=== PATIENT | male | born 1995 | race Hispanic/Latino ===

== ENCOUNTER 2020-05-17 16:49 | Emergency (ER) | payer OTHER ==
[~2020-05-17] VITALS: Ht 175.3 cm; Wt 90.9 kg
--- NOTE | 2020-05-17 18:07 | REP ---
INDICATION: pain. COMPARISON: None. TECHNIQUE: Five views. FINDINGS: Five views of the left knee demonstrate normal bones, joints, and soft tissues. No fracture or subluxation is seen. No opaque foreign body noted. A normal fabella is seen. IMPRESSION: Negative left knee series. <Electronically signed by Jay Jay Anderson > 05/17/20 [id number]
--- NOTE | 2020-05-17 18:08 | REP ---
INDICATION: pain. COMPARISON: None. TECHNIQUE: Three views. FINDINGS: Three views of the right shoulder demonstrate normal alignment of the glenohumeral articulation. The distal clavicle appears aligned somewhat superiorly with respect to the acromion process. This should be correlated clinically with area of tenderness and history but a mild AC separation injury is suspected radiographically. The visualized right hemithorax structures are unremarkable. Periarticular soft tissues are intact unremarkable. IMPRESSION: No fracture seen. Question mild AC separation injury on the right. Correlate with area of tenderness to palpation and clinical history. <Electronically signed by Jay Jay Anderson > 05/17/20 [id number]
[2020-05-17] MEDS ORDERED: ACETAMINOPHEN 325 MG TAB PO ONE (18:25)
[2020-05-17 18:37] VITALS: BP 148/75
== END 2020-05-17 18:45 | disposition home or self-care (01) ==
LOC: M ED 16:49
DX: S43.101A Unspecified dislocation of right acromioclavicular joint, initial encounter (principal); S80.02XA Contusion of left knee, initial encounter; W19.XXXA Unspecified fall, initial encounter; Y92.89 Other specified places as the place of occurrence of the external cause; Y93.9 Activity, unspecified; Y99.1 Military activity; Z79.899 Other long term (current) drug therapy